=== PATIENT | female | born 1995 | race Caucasian/White ===

== ENCOUNTER 2018-05-17 02:09 | Inpatient (IN) | payer OTHER ==
[2018-05-17] VITALS (8 sets, daily range): BP systolic 111–144; BP diastolic 61–89
[~2018-05-17] VITALS: Ht 162.6 cm; Wt 67.1 kg
--- NOTE | 2018-05-17 02:30 | NUR ---
BBSELF FROM HOME C/C RLQ ABD PAIN RADIATING TO THE RL BACK W/ EPIGASTRIC PAIN. STATES UNABLE TO URINATE FOR 6HRS. A/O X4. NOTED WITH NAUSEA. VSS WNL. PLACED ON MONITOR. AWAITING MD CORRIGAN.
[2018-05-17 02:50] LABS: APPEARANCE,URINE CLOUDY (CLEAR); BILIRUBIN,URINE NEGATIVE (NEGATIVE); BLOOD, URINE TRACE-INTA Ery/uL (NEGATIVE); COLOR,URINE YELLOW (YELLOW); KETONES,URINE 1+ (NEGATIVE); LEUKOCYTE ESTERASE ,URINE 2+ (NEGATIVE); NITRITE, URINE NEGATIVE (NEGATIVE); PROTEIN,URINE NEGATIVE (NEGATIVE); UGLUCOSE NEGATIVE (NEGATIVE); UROBILINOGEN,URINE 0.2 EU/dL (0.2)
[2018-05-17 02:55] LABS: BACTERIA,URINE Few /HPF (None Seen); RBC,URINE 0-2 /HPF (0-2); SQUAMOUS EPITHELIAL CELL,UR Few /HPF (None Seen); WBC,URINE 51-80 /HPF (0-3)
[2018-05-17] MEDS ORDERED: IV NS 0.9% 1,000 ML BAG IV ONE (03:00)
[2018-05-17] MEDS ORDERED: HYDROMORPHONE INJ 2 MG/ML DISP.SYRIN IV ONE (03:00)
[2018-05-17] MEDS ORDERED: ONDANSETRON HCL/PF 4 MG/2 ML VIAL IVP ONE (03:00)
[2018-05-17] MEDS ORDERED: HYDROMORPHONE INJ 0.5 MG/0.5 ML SYRINGE ONE (03:02)
[2018-05-17] MEDS ORDERED: ONDANSETRON HCL/PF 4 MG/2 ML VIAL ONE (03:02)
[2018-05-17 03:04] LABS: BASOPHILS % (AUTO) 0.2 % (0.0-2.0); EOSINOPHILS % (AUTO) 0.2 % (0.0-6.0); HEMATOCRIT 40 % (33-45); HEMOGLOBIN 13.7 g/dL (11.5-14.8); LYMPHOCYTES # (AUTO) 1.3 /CMM (0.8-4.8); LYMPHOCYTES % (AUTO) 8.6 % (20.0-44.0); MEAN CORPUSCULAR HGB CONC 34 g/dl (31.0-36.0); MEAN CORPUSCULAR VOLUME 93 fL (82-100); MONOCYTES # (AUTO) 0.7 /CMM (0.1-1.30); MONOCYTES % (AUTO) 4.3 % (2.0-12.0); NEUTROPHILS # (AUTO) 13.2 /CMM (1.8-8.9); NEUTROPHILS % (AUTO) 86.7 % (43.0-81.0); PLATELET COUNT (AUTO) 234 /CMM (150-450); RED BLOOD CELL COUNT(AUTO) 4.33 MIL/uL (4.0-5.2); WHITE BLOOD COUNT (AUTO) 15.2 K/uL (4.3-11.0)
[2018-05-17 03:13] LABS: CALCIUM, SERUM 9.1 mg/dL (8.5-10.1); CREATININE 0.8 mg/dL (0.6-1.3); POTASSIUM 3.8 mmol/L (3.5-5.1)
[2018-05-17 03:19] LABS: ALBUMIN 4.3 g/dL (3.4-5.0); BILIRUBIN,DIRECT 0.1 mg/dL (0.0-0.2); BILIRUBIN,TOTAL 0.3 mg/dL (0.2-1.0)
[2018-05-17] MEDS ORDERED: IOHEXOL-300 100 ML VIAL IV ONE (03:24)
[2018-05-17] MEDS ORDERED: CT SWABBABLE VALVE TRANS SET 1 EA INFUS.SET MC ONE (03:24)
[2018-05-17] MEDS ORDERED: IV NS 0.9% 250 ML IV ONE (03:24)
--- NOTE | 2018-05-17 03:30 | NUR ---
TAKEN TO CT SCAN
--- NOTE | 2018-05-17 03:50 | NUR ---
BACK FROM CT
[2018-05-17] MEDS ORDERED: PIPERACILLIN /TAZOBACTAM 3.375 G VIAL IV ONE (04:25)
[2018-05-17] MEDS ORDERED: PIPERACILLIN /TAZOBACTAM 3.375 G in IV D5W 50 ML IV ONE (04:30)
--- NOTE | 2018-05-17 04:50 | NUR ---
GAVE REPORT TO ISAIAS GORDON
[2018-05-17] MEDS ORDERED: Z GUARD REMEDY 2 OZ OINT TP PRN (05:00)
[2018-05-17] MEDS ORDERED: MAGNESIUM HYDROXIDE 30 ML UDC PO PRN (05:00)
[2018-05-17] MEDS ORDERED: ACETAMINOPHEN 325 MG TABLET PO PRN (05:00)
[2018-05-17] MEDS ORDERED: MAG HYDROX/AL HYDROX/SIMETH 30 ML UDC PO PRN (05:00)
[2018-05-17] MEDS ORDERED: MORPHINE SULFATE INJ 2 MG/ML DISP.SYRIN IV PRN (05:00)
--- NOTE | 2018-05-17 05:00 | NUR ---
RN MS ADMISSION NOTES RECEIVED PATIENT FROM ER VIA WHEELCHAIR. PATIENT IS ALERT AND ORIENTED X4, VERBALLY RESPONSIVE, ABLE TO MAKE NEEDS KNOWN. BREATHING EVEN AND UNLABORED. NO SOB NOTED. TOLERATING ROOM AIR. CURRENTLY WITH NO COMPLAINTS OF PAIN OR DISCOMFORT. NO FACIAL GRIMACING. IV ON LEFT AC G#20 INTACT AND PATENT. SKIN DRY AND WARM TO TOUCH. AFEBRILE. EXPLAINED THE PROCESS OF ADMISSION, INCLUDING A SKIN ASSESSMENT - PATIENT VERBALIZED UNDERSTANDING. NO SKIN ISSUES FOUND. BELONGINGS ACCOUNTED FOR - INVENTORY LIST SIGNED. ORIENTED TO THE USE OF UNIT AMENITIES. KEPT NPO. SAFETY MEASURES IN PLACE. CALL LIGHT WITHIN REACH. WILL CONTINUE TO MONITOR.
--- NOTE | 2018-05-17 05:10 | NUR ---
TRANSFERRED PT TO ROOM 308-2
[2018-05-17] MEDS: IV NS 0.9% 1,000 ML IV PRN (05:20)
--- NOTE | 2018-05-17 06:38 | NUR ---
RN MS CLOSING NOTES PATIENT RESTING IN BED. NO ACUTE CHANGES. BREATHING EVEN AND UNLABORED. NO SOB NOTED. TOLERATING ROOM AIR. CURRENTLY WITH NO COMPLAINTS OF PAIN OR DISCOMFORT. NO FACIAL GRIMACING. IV ON LEFT AC G#20 INTACT AND PATENT WITH NS @ 75ML/HR. SKIN DRY AND WARM TO TOUCH. AFEBRILE. ALL OTHER NEEDS ATTENDED TO. KEPT NPO. SAFETY MEASURES IN PLACE. CALL LIGHT WITHIN REACH. WILL ENDORSE TO ONCOMING NURSE FOR [place].
--- NOTE | 2018-05-17 07:30 | NUR ---
m/s paint stripper: initial assessment received pt in bed awake, a/ox4; ambulatory. remains npo. no c/o pain at this time. continue on ivf, infusing well. instructed to call for assistance. will monitor.
[2018-05-17] MEDS: HYDROMORPHONE INJ 2 MG/ML DISP.SYRIN IV PRN ×2 (08:30→17:24)
[2018-05-17] MEDS: ONDANSETRON HCL/PF 4 MG/2 ML VIAL IVP PRN ×2 (08:30→17:27)
--- NOTE | 2018-05-17 08:30 | NUR ---
m/s tire room supervisor: notes c/o 8/10 abdominal pain and c/o nausea, but no vomiting. medicated with dilaudid 0.25mg and zofran 4mg ivp by rn. family at bedside. instructed to call for assistance. will monitor.
--- NOTE | 2018-05-17 09:00 | NUR ---
m/s beverage host: notes pt verbalized relief of nausea and just slight discomfort still on her abdomen as stated. friend remains at bedside. instructed to call for assistance. will monitor.
--- NOTE | 2018-05-17 10:35 | NUR ---
m/s music professor: md visit seen and examined by dr. puentes at this time and updated plan of care. pt to remain npo and for surgeon consult per md. pt aware and verbalized understanding.
[2018-05-17] MEDS: PIPERACILLIN /TAZOBACTAM 3.375 G in IV D5W 100 ML IV SCH ×2 (10:46→17:21)
[2018-05-17] MEDS ORDERED: PIPERACILLIN /TAZOBACTAM 3.375 G in IV D5W 50 ML IV SCH (12:00)
--- NOTE | 2018-05-17 12:00 | NUR ---
m/s school resource officer: surgeon consult seen and examined by azalia (louie) at this time and plan for appendectomy (surgery) today/tomorrow. educated and teaching given by azalia and pt verbalized understanding.
[2018-05-17] MEDS ORDERED: birth control pill PO (13:13)
--- NOTE | 2018-05-17 13:20 | NUR ---
m/s critical care physician: notes o.r. called and informed me that they will garbage pick up man the pt around 4:30pm today. pt made aware and consent obtained for: Laparoscopic appendectomy possible open possible any other indicated, by dr. Guaman. mother at bedside.
[2018-05-17] MEDS ORDERED: MIDAZOLAM HCL 2 MG/2ML VIAL ONE (13:58)
[2018-05-17] MEDS ORDERED: HYDROMORPHONE INJ 2 MG/ML DISP.SYRIN ONE (13:58)
[2018-05-17] MEDS ORDERED: ROCURONIUM BROMIDE 50 MG/5 ML ONE (13:58)
[2018-05-17] MEDS ORDERED: LIDOCAINE HCL/PF 1% 30 ML SDV ONE (14:52)
[2018-05-17] MEDS ORDERED: BUPIVACAINE MPF 0.5% W/EPI INJ 30 ML VIAL ONE (14:52)
--- NOTE | 2018-05-17 15:00 | NUR ---
m/s vp cardiovascular service line: notes picked up by o.r. team via bed at this time.
[2018-05-17] MEDS ORDERED: DESFLURANE 240 ML BOTTLE IH ONE (15:22)
[2018-05-17] MEDS ORDERED: HYDROMORPHONE 1 MG/1 ML DISP.SYRIN ONE (16:15)
--- NOTE | 2018-05-17 16:55 | NUR ---
m/s land conservation specialist: notes received pt from recovery room awake, a/ox4 with dx: s/p lap appy. report given at bedside by recovery nurse. noted with 3 small incision to abdomen with dermabond. mother at bedside. clear liquid provided and instructions given re: post up, pt and mother verbalized understanding.
--- NOTE | 2018-05-17 17:20 | NUR ---
m/s internal corrosion specialist: notes pt called and started panicking, c/o shortness of breath. deep breathing teaching provided and incentive spirometry teaching provided; also o2 provided at 2l/min via n/c. mother remains at bedside. satting at 97%-100%. also pt c/o abdominal pain with nausea. medicated with dilaudid 0.25mg and zofran 4mg ivp by rn. instructed to call for assistance. will continue to monitor.
--- NOTE | 2018-05-17 18:00 | NUR ---
m/s casework specialist: notes pt more relaxed and breathing comfortable. no anxiety noted. mother remains at bedside. vss. instructed to call for assistance. will monitor.
--- NOTE | 2018-05-17 19:25 | NUR ---
ASSEMBLER FINAL NOTES RECEIVED PATIENT AWAKE IN BED, NO ACUTE DISTRESS NOTED, BREATHING EVEN AND UNLABORED, PATIENT IS S/P LAPAROSCOPIC APPENDECTOMY, PATIENT IS IN MILD TOLERABLE PAIN, DOESN'T WANT PAIN MEDICATION AT THIS TIME, BUT COMPLAINTS OF ITCHINESS THROUGHOUT HER BODY, INFORMED PATIENT THAT WILL CALL MD TO OBTAIN ORDER FOR ITCHINESS, MOM AND FRIEND AT BEDSIDE, SAFETY MEASURES IN PLACED, PATIENT IS AMBULATING TO AND FROM THE BATHROOM WITH MINIMAL ASSIST. WILL MONITOR ACCORDINGLY. Addendum: 05/18/18 at 0440 by DEAN OSEGUERA RN NOT ADMISSION NOTES
[2018-05-17] MEDS ORDERED: diphenhydrAMINE HCL ELIX 25 MG/10 ML UDC PO PRN (20:30)
[2018-05-18 00:24] VITALS: BP 107/73
[2018-05-18] MEDS: PIPERACILLIN /TAZOBACTAM 3.375 G in IV D5W 100 ML IV SCH ×3 (02:46→18:12)
[2018-05-18] MEDS: HYDROMORPHONE INJ 2 MG/ML DISP.SYRIN IV PRN ×3 (02:47→18:31)
[2018-05-18 04:20] VITALS: BP 101/51
--- NOTE | 2018-05-18 06:45 | NUR ---
RN NOTES ALL NEEDS ATTENDED AND MET, AMBULATES GOING TO AND FROM THE TOILET ON STAND BY ASSIST FOR SAFETY, NO COMPLAINTS OF ITCHINESS, PAIN, OR DISCOMFORT AT THIS TIME, WILL ENDORSE TO AM NURSE FOR D/C PLANNING TODAY.
[2018-05-18 06:55] LABS: BASOPHILS % (AUTO) 0.2 % (0.0-2.0); EOSINOPHILS % (AUTO) 0.1 % (0.0-6.0); HEMATOCRIT 33 % (33-45); HEMOGLOBIN 11.4 g/dL (11.5-14.8); LYMPHOCYTES # (AUTO) 1.6 /CMM (0.8-4.8); LYMPHOCYTES % (AUTO) 19.8 % (20.0-44.0); MEAN CORPUSCULAR HGB CONC 34 g/dl (31.0-36.0); MEAN CORPUSCULAR VOLUME 93 fL (82-100); MONOCYTES # (AUTO) 0.7 /CMM (0.1-1.30); MONOCYTES % (AUTO) 9.3 % (2.0-12.0); NEUTROPHILS # (AUTO) 5.7 /CMM (1.8-8.9); NEUTROPHILS % (AUTO) 70.6 % (43.0-81.0); PLATELET COUNT (AUTO) 195 /CMM (150-450); RED BLOOD CELL COUNT(AUTO) 3.59 MIL/uL (4.0-5.2)
[2018-05-18 07:26] LABS: CALCIUM, SERUM 8.4 mg/dL (8.5-10.1); CREATININE 0.7 mg/dL (0.6-1.3); PHOSPHORUS 3.8 mg/dL (2.5-4.9)
[2018-05-18 07:29] LABS: THYROID STIMULATING HORMONE 0.645 uIU/mL (0.358-3.74)
[2018-05-18 08:00] VITALS: BP 119/66
[2018-05-18] MEDS: PANTOPRAZOLE 40 MG TABLET.DR PO SCH (08:46)
--- NOTE | 2018-05-18 13:00 | NUR ---
pt. c/o iv hurting,removed and restarted rt. wrist with #22 angio.
[2018-05-18] MEDS: HYDROCODONE/APAP 5/325MG 1 EACH TABLET PO PRN ×2 (13:15→20:47)
--- NOTE | 2018-05-18 15:12 | NUR ---
med. x 2 for surgical pain with good effect.refused to ambulate till mother got here. both cnp for surgeon and dr. dhaval flores in to see pt. orders given.both cnp and md aware of facial swelling.ok,d to continue ordered meds as well as antibiotic.mother present at bedside most of day.
[2018-05-18 16:00] VITALS: BP 111/53
[2018-05-18] MEDS: IV NS 0.9% 1,000 ML IV PRN (17:19)
--- NOTE | 2018-05-18 18:30 | NUR ---
medicated again for pain.
--- NOTE | 2018-05-18 19:46 | NUR ---
RN MS OPENING NOTES PATIENT RESTING IN BED. ALERT AND ORIENTED X4, VERBALLY RESPONSIVE, ABLE TO MAKE NEEDS KNOWN. BREATHING EVEN AND UNLABORED. NO SOB NOTED. TOLERATING ROOM AIR. CURRENTLY WITH NO COMPLAINTS OF PAIN OR DISCOMFORT. NO FACIAL GRIMACING. NO N/V. IV ON RIGHT WRIST G#22 INTACT AND PATENT. SKIN DRY AND WARM TO TOUCH. AFEBRILE. ALL OTHER NEEDS ATTENDED TO. SAFETY MEASURES IN PLACE. CALL LIGHT WITHIN REACH. WILL CONTINUE TO MONITOR.
[2018-05-18 20:00] VITALS: BP 116/62
[2018-05-19] MEDS: PIPERACILLIN /TAZOBACTAM 3.375 G in IV D5W 100 ML IV SCH ×2 (02:04→10:54)
[2018-05-19] MEDS: HYDROCODONE/APAP 5/325MG 1 EACH TABLET PO PRN ×2 (06:10→11:01)
--- NOTE | 2018-05-19 06:26 | NUR ---
RN MS CLOSING NOTES PATIENT RESTING IN BED. NO ACUTE CHANGES. BREATHING EVEN AND UNLABORED. NO SOB NOTED. TOLERATING ROOM AIR. CURRENTLY WITH NO COMPLAINTS OF PAIN OR DISCOMFORT. NO FACIAL GRIMACING. IV ORIGHT WRIST G#22 INTACT AND PATENT WITH NS @ 75ML/HR. SKIN DRY AND WARM TO TOUCH. AFEBRILE. ALL OTHER NEEDS ATTENDED TO. SAFETY MEASURES IN PLACE. CALL LIGHT WITHIN REACH. WILL ENDORSE TO ONCOMING NURSE FOR [place].
--- NOTE | 2018-05-19 07:00 | NUR ---
ms rn received on bed, awake,alert,oriented x4,not in any form of distress,respirations even and unlabored, no sob noted,will monitor patient.
[2018-05-19 08:00] VITALS: BP 118/71
--- NOTE | 2018-05-19 09:00 | NUR ---
ms mcnally breakfast served,due meds given,tolerated well.
--- NOTE | 2018-05-19 10:00 | NUR ---
ms rn was seen by jose del angel/ order to go home today.
[2018-05-19] MEDS: PANTOPRAZOLE 40 MG TABLET.DR PO SCH (10:54)
[2018-05-19] MEDS ORDERED: IBUP-1953 PO (11:12)
[2018-05-19] MEDS ORDERED: ACET325T53 PO (11:12)
--- NOTE | 2018-05-19 12:30 | NUR ---
ms rn dressing to incision site clean and dry, refused to take pictures.
--- NOTE | 2018-05-19 13:00 | NUR ---
ms journeyman painter instructions given, went home accompanied by mom, no distress noted.
== END 2018-05-19 13:00 | disposition home or self-care (01) | DRG 233 ==
LOC: ER 02:18 → MED 04:19
PROC: 0DTJ4ZZ Resection of Appendix, Percutaneous Endoscopic Approach (ICD-10-PCS; principal; 2018-05-17)
DX: K35.32 Acute appendicitis with perforation, localized peritonitis, and gangrene, without abscess (principal); N39.0 Urinary tract infection, site not specified; N83.202 Unspecified ovarian cyst, left side
CPT/HCPCS: 36415; 76856-TC; 80048-TC; 80061-TC; 80076-TC; 81000-TC; 83605-TC; 83690-TC; 83735-TC; 84100-TC; 84443-TC; 84703-TC; 85025-TC; 85730-TC; 87040-TC; 87081-TC; 87086-TC; 88304-TC; G0378; J0330; J1100; J1170; J1885; J2250; J2405; J2543; J2704; J2710; J3490; J7030; J7050; J7060; Q0163; Q9967